=== PATIENT | female | born 1990 | race Caucasian/White ===

== ENCOUNTER 2016-07-07 12:33 | Emergency (ER) | payer BC ==
[2016-07-07 11:51] LABS: URINE SOURCE CLEAN CATCH
[2016-07-07 11:54] LABS: BASOPHIL# 0.1 X10e3 (0-0.3); BASOPHIL% 0.7 % (0-2.5); EOSINOPHIL# 0.1 X10e3 (0-0.7); EOSINOPHIL% 0.8 % (0.0-7.0); HEMATOCRIT 40.7 % (35.0-45.0); HEMOGLOBIN 13.4 gm/dL (12.0-16.0); LYMPHOCYTE# 1.7 X10e3 (1.0-3.5); LYMPHOCYTE% 20.7 % (17.0-45.0); MEAN CELL VOLUME 95.3 FL (83-96); MEAN CORPUSCULAR HEMOGLOBIN 31.3 PG (28-34); MEAN CORPUSCULAR HGB CONC 32.9 g/dL (30-36); MEAN PLATELET VOLUME 9.4 FL (6.5-11.5); MONOCYTE# 0.6 X10e3 (0-1.0); NEUTROPHIL# 5.8 X10e3 (1.5-7.1); NEUTROPHIL% 70.8 % (40-75); PLATELET COUNT 216 X10e3 (140-420); RED BLOOD COUNT 4.27 X10e (3.90-5.30); RED CELL DISTRIBUTION WIDTH 13.1 % (11.0-15.5); WHITE BLOOD COUNT 8.2 X10e3 (4.0-10.5)
[2016-07-07 12:00] LABS: DIFF IND NO
[2016-07-07 12:07] LABS: URINE APPEARANCE CLOUDY; URINE BILIRUBIN NEG (NEG); URINE BLOOD NEG (NEG); URINE COLOR YELLOW; URINE GLUCOSE NEG (NEG); URINE KETONE NEG (NEG); URINE LEUKOCYTE ESTERASE 1+ (NEG); URINE NITRATE NEG (NEG); URINE PH 6.5 (5-8); URINE PROTEIN NEG (NEG); URINE SPECIFIC GRAVITY 1.007 (1.003-1.035); URINE UROBILINOGEN 0.2 MG/DL (NEG)
[2016-07-07 12:12] LABS: CULTURE INDICATED? YES; URBCS1 AUWI 0-2 /[HPF] (0-2); URINE BACTERIA AUWI 1+ (NEGATIVE); URINE SQUAMOUS EPITHELIAL CELL FEW /[HPF]
[2016-07-07 12:20] LABS: AMPHETAMINE NEG (NEG); BARBITURATES NEG (NEG); BENZODIAZEPINES NEG (NEG); COCAINE NEG (NEG); MARIJUANA NEG (NEG); OPIATES NEG (NEG); TRICYCLIC ANTIDEPRESSANTS NEG (NEG); U METHADONE NEG (NEG)
[2016-07-07 12:25] LABS: ACETAMINOPHEN <10 ug/mL; ALBUMIN SERUM 4.6 g/dL (3.5-5.0); ALCOHOL BLOOD <5 mg/dL (0); ALKALINE PHOSPHATASE 25 U/L (32-92); ALT (SGPT) 10 U/L (10-40); AST (SGOT) 16 U/L (10-42); BILIRUBIN, DIRECT 0.1 mg/dL (0.0-0.2); BILIRUBIN,INDIRECT 0.7 mg/dL (0.0-0.9); BILIRUBIN,TOTAL 0.8 mg/dL (0.2-2.0); BLOOD UREA NITROGEN 6 mg/dL (9-23); CALCIUM SERUM 9.3 mg/dL (8.4-10.2); CARBON DIOXIDE 27 mmol/L (22-31); CHLORIDE 104 mmol/L (100-111); CREATININE SERUM 0.5 mg/dL (0.6-1.4); GLOM FILT RATE Estimated 133.6 mL/min (>60); GLUCOSE FASTING 98 mg/dL (70-110); POTASSIUM 4.2 mmol/L (3.5-5.1); PROTEIN TOTAL SERUM 7.2 g/dL (6.0-8.3); SALICYLATE <4.0 mg/dL; SODIUM 140 mmol/L (135-145)
== END 2016-07-07 16:00 ==
LOC: CED 12:33
PROVIDERS: Emergency Medicine
DX: R45.851 Suicidal ideations (principal); F17.200 Nicotine dependence, unspecified, uncomplicated; F31.9 Bipolar disorder, unspecified
CPT/HCPCS: 36415; 80048; 80076; 80178; 80307; 81003; 84703; 85025; 87086; 99291; G0480

== ENCOUNTER 2016-07-07 16:45 | Inpatient (IN) | payer BC ==
--- NOTE | ~2016-07-07 | PN ---
Unit #: [id number] #: [id number] Patient: NINO CALDWELL [id number] [facility] [address] [place] [address] [id number] MR#: [id number] NAME: NINO CALDWELL ROOM: 64 Age: 25 Sex: F Admission Date: 07/07/2016 : 1990 Attending Physician: Kenneth Barrett M.D. Admitting Physician: Kenneth Barrett M.D. Primary Care Physician: [facility] Megha CONNELL PROGRESS NOTES DATE 07/09/2016 DISCUSSION The patient is in brighter spirits today. She admits that she had missed several doses of lithium prior to admission to the hospital. More to the point, she did tolerate initiation of Latuda well and is brighter today though she reports a lingering suicidal ideation. I have spoken with the patient regarding post-discharge treatment options including possible enrollment in the partial hospitalization program at [facility]. Dictated by... Kenneth Barrett M.D. CB/adryan TD: 07/09/2016 13:22 JOB #: [id number] PROGRESS NOTES Page 1 of 1 X Kenneth Barrett MD X PROGRESS NOTE
--- NOTE | ~2016-07-07 | DS ---
Unit #: [id number] #: [id number] Patient: NINO CALDWELL [id number] [place] [address] [id number] MR#: [id number] NAME: NINO CALDWELL ROOM: P264 Age: 25 Sex: F Admission Date: 07/07/2016 : 1990 Discharge Date: 07/10/2016 Attending Physician: Kenneth Barrett M.D. Primary Care Physician: [facility] Megha DISCHARGE SUMMARY REASON FOR ADMISSION The patient is a 25-year-old white female with a history of bipolar disorder type 2, admitted in a depressed phase. HOSPITAL COURSE The patient was admitted to the -[facility] unit and continued on prescribed medications including lithium carbonate and Lamictal. The patient's lithium level on admission was low at 0.1, but she admitted that she had been sporadically compliant with that medication prior to her admission to the hospital. She also reported that she had been drinking a bit more than usual. The patient was started on Latuda 20 mg daily to address depressive symptoms and tolerated the medication well. Her mood brightened considerably during her brief hospital stay and she was agreeable with plan for followup in the [facility] partial hospitalization program following discharge as well as followup with Dr. Rucker, her previous treating psychiatrist. Discharge was ordered as per the patient's request on 07/10/2016 with the patient denying suicidal ideation at that time. FINAL DIAGNOSES Bipolar disorder, type 2, most recent episode depressed; celiac disease. DISPOSITION ON DISCHARGE The patient is discharged on the following medications; Latuda 20 mg daily for bipolar depression, lithium carbonate 300 mg q.a.m. and 600 mg at h.s. for mood stabilization, Lamictal 200 mg at bedtime for mood stabilization. DISCHARGE INSTRUCTIONS No dietary or physical restrictions were placed upon the patient at the time of discharge. FOLLOWUP Followup will take place through the auspices of Dr. Vince Rucker, as well as the partial hospitalization program at [facility]. PROGNOSIS The patient's prognosis is considered good. She is informed of the risks and benefits of medications including the risk of tardive dyskinesia with long-term use of antipsychotic medications such as Latuda. She is likewise apprised of FDA mandated warnings regarding the effects of atypical antipsychotics on metabolism of lipids and glucose. Unit #: [id number] #: [id number] Patient: NINO CALDWELL Dictated by... Kenneth Barrett M.D. CB/ayush TD: 07/11/2016 06:12 JOB #: [id number] CC: Vince Rucker M.D. DISCHARGE SUMMARY Page 1 of 1 X Kenneth Barrett MD X DISCHARGE SUMMARY
--- NOTE | ~2016-07-07 | PA ---
Unit #: [id number] #: [id number] Patient: NINO CALDWELL [id number] [place] [address] [id number] MR#: [id number] NAME: NINO CALDWELL ROOM: P264 Age: 25 Sex: F Admission Date: 07/07/2016 : 1990 Date of Assessment: 07/08/2016 Attending Physician: Kenneth Barrett M.D. Admitting Physician: Kenneth Barrett M.D. Primary [facility]: [facility] PSYCHIATRIC ASSESSMENT IDENTIFYING INFORMATION The patient is a 25-year-old white female admitted to the [address] [place] [address] Unit with worsening symptoms of depression and suicidal ideation. CHIEF COMPLAINT "I have never been this low." INFORMANT Patient, reliability is good. HISTORY OF PRESENT ILLNESS The patient is a 25-year-old white female who reports a history of diagnosis with bipolar disorder type 2 at the age of 20. She has a history of one previous suicide attempt this having taken place in 2011 which resulted in hospitalization at the psychiatric facility in [place], [place], where she was attending college. The patient now reports that she has followed Dr. Vince Rucker, and is prescribed Lamictal and lithium. She reports, however, that she has had worsening symptoms of depression which she mainly attributes to her work situation. The patient is a wood shop teacher in the [employer] and reports that the job is a difficult one. She reports occasional use of alcohol. She denies use of other psychoactive substances. The patient was reporting positive suicidal ideation with plan to overdose and states that she has had "various other plans." The patient currently lives alone. She denies recent changes in appetite though she suffered from celiac disease and reports that her appetite has always been somewhat variable. Her sleep has also recently been affected with the patient complaining of poor sleep recently. PAST PSYCHIATRIC HISTORY As above. PAST MEDICAL HISTORY Significant for a history of celiac disease. MEDICATIONS [place] carbonate, Lamictal. ALLERGIES None. FAMILY HISTORY Noncontributory. Unit #: [id number] #: [id number] Patient: NINO CALDWELL SOCIAL HISTORY The patient currently lives alone. She graduated from [employer] is now a wood shop teacher in [employer] system. She reports social alcohol use and is a smoker. MENTAL STATUS EXAMINATION Examination at this time reveals the patient a thin white female appearing her stated age. She is in no apparent physical distress at the time of examination. She is awake, alert, and oriented in all spheres. Her mood is dysphoric, her affect congruent. Speech is generally well coherent. There are no gross deficits in memory or cognition noted. Intelligence is judged to be in the average range based on fund of knowledge. The patient is cooperative throughout the interview. She is currently endorsing positive suicidal ideation. She denies homicidal ideation. She denies any psychotic symptoms. Her judgment and insight appear to be intact. ASSETS AND LIABILITIES The patient's assets: Motivation for change, high level of functioning. High educational level. Liabilities: None. DIAGNOSTIC IMPRESSION 1. Bipolar disorder type 2, depressed phase. 2. Celiac disease. TREATMENT PLAN The patient remains hospitalized for safety and stabilization. We will continue lithium carbonate and Lamictal. The patient's lithium level does appear to be somewhat low, and upward titration may become necessary though it is the suspicion of this physician that the patient may have been less than optimally compliant as her dose appear to be an optimal one. We will continue lithium and Lamictal, and we will add Latuda 20 mg at 6 p.m. to address the patient's depressive symptoms. The patient will participate in appropriate order of milieu activities and looks to be a good candidate to participation in the partial hospitalization program following her discharge from this facility which will take within 5 to 7 days. Dictated by... Kenneth Barrett M.D. Sheree TD: 07/08/2016 13:50 JOB #: [id number] CC: Vince Rucker M.D. Unit #: [id number] #: [id number] Patient: NINO CALDWELL PSYCHIATRIC ASSESSMENT Page 1 of 1 X Kenneth Barrett MD X PSYCHIATRIC ASSESSMENT
--- NOTE | ~2016-07-07 | HP ---
Unit #: [id number] #: [id number] Patient: RACHEL CALDWELL [id number] [place] [address] [id number] I MR#: [id number] NAME: RACHEL CALDWELL ROOM: P264 Age: 25 Sex: F Admission Date: 07/07/2016 : 1990 Attending Physician: Kenneth Barrett M.D. Admitting Physician: Kenneth Barrett M.D. Primary Care Physician: [facility] HISTORY AND PHYSICAL HISTORY OF PRESENT ILLNESS Rachel is a 25 year old admitted to [address] [place] [address] with depression and verbalizing wanting to hurt herself. PAST MEDICAL HISTORY Nothing significant. PAST SURGICAL HISTORY Nothing reported. ALLERGIES No known drug allergies. SOCIAL HISTORY Smokes less than 1 pack per day. Drinks alcohol rarely. Denies illicit drug use. FAMILY HISTORY Medically noncontributory. REVIEW OF SYSTEMS CONSTITUTIONAL: No fever or chills. HEENT: Denies any sore throat, ear pain or runny nose. CARDIOVASCULAR: Denies chest pain, irregular heart rhythm or palpitations. CHEST: Denies shortness of breath or cough. No hemoptysis. GASTROINTESTINAL: Denies nausea, vomiting, diarrhea or chronic constipation. ENDOCRINE: Denies history of increased thirst or urination. No recent significant weight loss or gain. GENITOURINARY: Denies dysuria, frequency, or hematuria. SKIN: Denies any rashes. HEMATOLOGIC: Denies history of increased bleeding or bruising. MUSCULOSKELETAL: Denies any hot, swollen joints. No generalized muscle pain. NEUROLOGIC: Denies problems with vision or speech. No frequent, severe headaches. No numbness, tingling or weakness in any extremities. Denies loss of bladder or bowel control. CURRENT MEDICATIONS 1. Latuda 20 mg daily. 2. Nicotine patch 7 mg daily. 3. Lamictal 200 mg q.h.s. 4. Lithobid SR 300 mg q.a.m., 600 mg q.h.s. Unit #: [id number] #: [id number] Patient: RACHEL CALDWELL 5. Melatonin 6 mg q.h.s. p.r.n. 6. Milk of Magnesia p.r.n. 7. Maalox p.r.n. 8. Tylenol p.r.n. PHYSICAL EXAMINATION GENERAL: Alert, well-nourished, in no apparent distress. VITAL SIGNS: Blood pressure 100/60, heart rate 80, respirations 16, temperature 98.6. WEIGHT: 110. HEIGHT: 5 feet 1 inch. SKIN: Warm and dry without rash or lesion. HEENT: Normocephalic. TMs not viewed. Oral and nasal passages clear. Conjunctivae clear. PERRLA. EOMs intact. NECK: Supple without lymphadenopathy or thyromegaly. HEART: Regular rate and rhythm without murmur. LUNGS: Clear. ABDOMEN: Soft, nontender. : Not done. EXTREMITIES: No evidence of cyanosis, clubbing or edema. Moves all without focal deficit. NEUROLOGICAL: Grossly within normal limits. Cranial Nerves: II: Visual jo are intact. III, IV AND : Extraocular movements are intact. Pupils are equal, round and reactive to light. V: Facial sensation is grossly normal. VII: Facial movements and expression are normal. VIII: Auditory acuity grossly intact. IX, X: Uvula is midline. Phonation is normal. XI: Patient shrugs shoulders and turns head normally. XII: Tongue protrudes in the midline. Sensory and Motor Function: Sensory and motor sensation is grossly normal. Motor: moves all extremities well. Coordination: Gait is normal. Deep Tendon Reflexes: Intact. IMPRESSION Psychiatric admission. RECOMMENDATIONS PSYCHIATRIC: Per psychiatrist. MEDICAL: See no contraindications to participate in facility's activities. MEDICAL PROGNOSIS Good. MEDICAL CONDITION Stable. Dictated by... Lo Danielle P.A.-C. for Lester Ramirez/yonny TD: 07/08/2016 16:11 JOB #: [id number] Unit #: [id number] #: [id number] Patient: RACHEL CALDWELL HISTORY AND PHYSICAL Page 1 of 1 X Lo Danielle HISTORY AND PHYSICAL
[2016-07-08 10:13] LABS: THYROID STIMULATING HORMONE 2.81 uIU/ml (0.34-5.60)
[2016-07-08 10:19] LABS: FREE THYROXIN (T4) 0.82 ng/dL (0.58-1.64)
== END 2016-07-10 16:20 | disposition home or self-care (01) | DRG 885 ==
LOC: P2L 16:45
PROVIDERS: Specialist
DX: F31.81 Bipolar II disorder (principal); K90.0 Celiac disease; F17.210 Nicotine dependence, cigarettes, uncomplicated
CPT/HCPCS: 84439; 84443; 84703